=== PATIENT | female | born 1970 | race African-American/Black ===

== ENCOUNTER 2016-06-07 11:25 | Day surgery (SDC) | payer MEDICARE ==
--- NOTE | ~2016-06-07 | EGD ---
EGD REPORT [facility] [address] [place] [id number] NAME: LESLEE PITTMAN : [birth year] STATUS : REG [facility]#: [id number] AGE: 46 ADM/REG DATE : 06/07/16 MR#: [id number] REPORT SERV DATE: 06/07/16 DICTATED BY: LARY OBREGON DATE: 06/07/16 REPORT STATUS : Draft [facility]ANS[facility]IBED BY: [facility] DATE: 06/07/16 Endoscopy Center Patient Name: Leslee Pittman Date of : 1970 Attending MD: LARY OBREGON MD Procedure Date No Time: 06/07/2016 Procedure: Upper GI endoscopy Indications: Epigastric abdominal pain Referring MD: ALEJANDRA CM Medicines: Monitored Anesthesia Care Complications: No immediate complications. Procedure: Pre-Anesthesia Assessment: - ASA Grade Assessment: III - A patient with severe systemic disease. After obtaining informed consent, the endoscope was passed under direct vision. Throughout the procedure, the patient's blood pressure, pulse, and oxygen saturations were monitored continuously. The GIF [id number] was introduced through the mouth, and advanced to the second part of duodenum. The upper GI endoscopy was accomplished without difficulty. The patient tolerated the procedure well. Findings: The examined esophagus was normal. Striped mildly erythematous mucosa without bleeding was found in the gastric antrum. Biopsies were taken with a cold forceps for histology. The cardia and gastric fundus were normal on retroflexion. The duodenal bulb and 2nd part of the duodenum were normal. Biopsies were taken with a cold forceps for evaluation of celiac disease. Impression: - Normal esophagus. - Erythematous mucosa in the antrum. Biopsied. - Normal duodenal bulb and 2nd part of the duodenum. Biopsied. Recommendation: - Patient has a contact number available for emergencies. The signs and symptoms of potential delayed complications were discussed with the patient. Return to normal activities tomorrow. Written discharge instructions were provided to the patient. - Regular diet. - Continue present medications. - Await pathology results. - Return to GI clinic in 4 weeks. EGD REPORT [facility] [address] [place] [address]. [id number] NAME: LESLEE PITTMAN : [birth year] STATUS : REG [facility]#: [id number] AGE: 46 ADM/REG DATE : 06/07/16 MR#: [id number] REPORT SERV DATE: 06/07/16 DICTATED BY: LARY OBREGON DATE: 06/07/16 REPORT STATUS : Draft TRANSCRIBED BY: [employer] DATE: 06/07/16 Procedure Code(s): --- Professional --- 85372, Esophagogastroduodenoscopy, flexible, transoral; with biopsy, single or multiple Diagnosis Code(s): --- Professional --- K31.9, Disease of stomach and duodenum, unspecified R10.13, Epigastric pain CPT copyright 2013 [employer]. All rights reserved. The codes documented in this report are preliminary and upon graduation coach review may be revised to meet current compliance requirements. LARY OBREGON MD 06/07/2016 3:11 PM This report has been signed electronically. Number of Addenda: 0 Note Initiated On: 06/07/2016 2:51 PM Scope Withdrawal Time 0 hours 0 minutes [address] [place] [id number]
[~2016-06-07 11:25] MED LIST: AMB5 PO; AMIT25 PO; ASTELIN NAS; ATV1 PO; BUT/APAP/CAF PO; COMP25R PR; FLONASE NAS; HUMALOG SC; IMITREX100 MG PO; LOP100 PO; LOTREL1 CAP PO; NEUR600 PO; NORCO1 TAB PO; NOVLOGPUMP SC; PR25 PO; PRILO PO; SPIRO50 PO; VENTOLIN HFA INH; VIST25 PO; ZANTAC150 MG PO; ZOL100 PO; [UNRECOGNIZED DRUG - OTHER] PR
== END 2016-06-07 23:59 | disposition home or self-care (01) ==
LOC: DMU 11:25
PROVIDERS: Internal Medicine Gastroenterology
PROC: 0DB68ZX Excision of Stomach, Via Natural or Artificial Opening Endoscopic, Diagnostic (ICD-10-PCS; 2016-06-07)
PROC: 0DB98ZX Excision of Duodenum, Via Natural or Artificial Opening Endoscopic, Diagnostic (ICD-10-PCS; principal; 2016-06-07 13:30)
DX: K29.50 Unspecified chronic gastritis without bleeding (principal); G43.909 Migraine, unspecified, not intractable, without status migrainosus; E66.01 Morbid (severe) obesity due to excess calories; I10 Essential (primary) hypertension; E11.8 Type 2 diabetes mellitus with unspecified complications; K51.90 Ulcerative colitis, unspecified, without complications; Z88.8 Allergy status to other drugs, medicaments and biological substances; Z88.5 Allergy status to narcotic agent; Z79.4 Long term (current) use of insulin; Z79.899 Other long term (current) drug therapy; Z90.49 Acquired absence of other specified parts of digestive tract; Z98.890 Other specified postprocedural states
CPT/HCPCS: 82962; 84703; 88305; 88342